=== PATIENT | female | born 1935 | race Caucasian/White ===

== ENCOUNTER 2016-12-22 00:04 | Day surgery (SDC) | payer MEDICARE, OTHER ==
[2016-12-22] VITALS (14 sets, daily range): BP systolic 114–170; BP diastolic 59–145; PULSE 64–67; RESP 12–22; O2SAT 91–97
[~2016-12-22] VITALS: Ht 160 cm; Wt 72.7 kg
[~2016-12-22 00:04] MED LIST: ALBU8.5H2 INH; ALBU8.5H2 INHALATION; AMLO2.5T PO; CALC1CAP6 PO; CITA20TA11 PO; CLOP75TA28 PO; FERR-83 PO; FLUT9.9S NS; GABA-502 PO; LEVO88TA4 PO; LOSA50TA37 PO; NITR-66 PO; RANI150T11 PO; ROSU5TAB PO; SOLI5TAB2 PO; SYMINH INHALATION; TIOT18CA3 INHALATION
[2016-12-22] MEDS ORDERED: Vancomycin Inj 1,000 MG in IV Premix 1 EACH IV SCH (07:25)
[2016-12-22] MEDS ORDERED: 0.9% Sodium Chloride 1,000 ML IV SCH (07:25)
[2016-12-22 08:28] LABS: BASOPHILS % (AUTO) 0.4 % (0-3); EOSINOPHILS % (AUTO) 5.8 % (0-5); MONOCYTES % (AUTO) 7.9 % (4-12); Mean Corpuscular Hemoglobin 28.3 pg (27.0-35.0); Mean Corpuscular Volume 93.5 fL (81-100); NEUTROPHILS % (AUTO) 63.5 % (40-74); Platelet Count 307 bil/L (150-400)
[2016-12-22] MEDS ORDERED: ADV250INH IH (08:28)
[2016-12-22] MEDS ORDERED: IPRA4AER IH (08:29)
[2016-12-22 08:52] LABS: INR 0.97 ratio
--- NOTE | 2016-12-22 08:53 | NUR ---
0800 admit note: Patient ambulates into department with family using her cane. Their questions are answered and consent was previously signed. She is prepped for pacemaker placement.
[2016-12-22] MEDS ORDERED: Water for Injection 50 ML IV ONE (09:59)
[2016-12-22] MEDS ORDERED: Vancomycin 1,000 mg Inj ONE (09:59)
[2016-12-22] MEDS ORDERED: 0.9% Sodium Chloride 250 ML ONE (09:59)
[2016-12-22] MEDS ORDERED: Heparin 10,000 Unit/1,000 mL NS Premix IV ONE (09:59)
[2016-12-22] MEDS ORDERED: Bupivacaine-MPF 0.5% 30 mL Inj ONE (09:59)
[2016-12-22] MEDS ORDERED: fentaNYL-PF 50 mCg/mL 2 mL Inj ONE (10:12)
[2016-12-22] MEDS ORDERED: Ondansetron 2 mg/mL 2 mL Inj IVPUSH PRN (11:25)
--- NOTE | 2016-12-22 13:53 | OP ---
[address] [address] OPERATIVE REPORT PATIENT: TOREY ROSS : 1935 MR#: [id number] ADMIT: 12/22/2016 JOB ID: [id number] DATE OF SURGERY: 12/22/2016 PREOPERATIVE DIAGNOSIS(ES): Sick sinus syndrome. POSTOPERATIVE DIAGNOSIS(ES): Sick sinus syndrome. PROCEDURES PERFORMED: 1. Dual-chamber pacemaker implantation. 2. Fluoroscopy. SURGEON: Interactive Developer: Winston Moya MD, electrophysiology attending. SIGNALS INTELLIGENCE ANALYST: Chandan Real. IMPLANTED DEVICES: 1. [employer] pulse generator, model [id number], serial #[id number]. 2. RV lead [employer] 2088TC, 52 cm, serial number [id number]. 3. RA lead [employer] 2088TC, 46 cm, serial number [id number]. SEDATION: Bolus dosing of Versed and fentanyl was utilized for an appropriate level of sedation. INDICATION: The patient is a pleasant 81-year-old woman with preserved LV function and sick sinus syndrome, along with syncope. After discussion of the risks and benefits of pacemaker implantation, she opted to proceed. PROCEDURAL DESCRIPTION: Following informed signed consent, the patient was taken to the EP laboratory in a fasting nonsedated state where she was prepped in the usual sterile fashion. The left infraclavicular region was infiltrated with 40 mL of a 50/50 mixture of bupivacaine and lidocaine. Once adequate anesthesia had been achieved, a 3 cm transverse incision was performed 2 cm below the left clavicle and dissection was carried down to the pectoralis fascia. A pocket was then fashioned using a combination of electrocautery and blunt dissection. Once adequate hemostasis had been achieved, access to the left axillary and was gotten over the first rib with a micropuncture needle twice to deploy two 0.035, 3 mm J guidewires. Over the first of these, a 6-Lebanese tear-away sheath was advanced. Once the guidewire was removed, an active fixation lead was advanced to the RV outflow tract and ultimately the RV apex. The lead was affixed in position using the associated fixation screw. This was connected to the external analyzer and demonstrated appropriately sensed R waves, impedance, and capture threshold. It was checked to 10 V and there was no evidence of diaphragmatic stimulation. Attention was now paid to the right atrial lead. Over the other previously placed J guidewire, another 6-Lebanese tear-away sheath was advanced. Once the guidewire was removed, an active fixation lead was advanced to the right atrial appendage. It was affixed in position using its associated active fixation screw. The lead was connected to the external analyzer and demonstrated appropriately sensed P waves, impedance, and capture threshold. It was checked to 10 V and there was no evidence of diaphragmatic stimulation. Once the position and redundancy of the leads was confirmed in multiple fluoroscopic views, the leads were anchored to the prepectoral fascia using their associated anchoring sleeves and two Ethibond sutures. The pocket was then copiously irrigated with antibiotic solution. The leads were connected to a generator. The generator was affixed to the floor of the pocket using 1-0 Ti-Cron suture. The incision was then closed with running layers of absorbable suture. The wound was dressed with skin adhesive and a small dressing. At the end of the procedure all needle, sponge, and instrument counts were correct. COMPLICATIONS: None. ESTIMATED BLOOD LOSS: Negligible. DEVICE MEASURED DATA: 1. Right atrial lead 3.6 mV, 430 ohms, 1 V at 0.4 msec. 2. RV lead 12 mV, 700 ohms, 0.5 V at 0.4 msec. 3. Final parameters DDDR 60-130 beats per minute with VIP on. IMPRESSION: Successful dual-chamber pacemaker implantation. PLAN: 1. Stat portable chest x-ray. 2. PA and lateral chest x-ray in the morning. 3. Device interrogation. 4. IV vancomycin through tomorrow. 5. Doxycycline 100 mg p.o. daily x7 days. 6. Wound check in one week. ATTENDING STATEMENT: Winston Moya MD, electrophysiology attending, was present for and supervised/performed all aspects of this procedure.
--- NOTE | 2016-12-22 14:50 | NUR ---
Patient to [facility] [place] Patient arrived to unit via gurney. Patient awake but groggy. Patient reporting Lt chest pain at incision site 03/27. Tylenol administered at approx 1430. Patient has ice to incision-small amount of drainage noted-marked by GRETA-drainage has not increased beyond marking. Patient requesting food and drink, however, is unable to sit up for intake due to pain. Patient quickly returned to sleep.
[2016-12-22] MEDS ORDERED: Albuterol 2.5 mg/3 mL Inhalation Solution NEB PRN (15:05)
[2016-12-22] MEDS ORDERED: Albuterol-Ipratropium 3 mL Inhalation Solution NEB PRN (15:05)
[2016-12-22] MEDS: 0.9% Sodium Chloride 1,000 ML IV SCH ×2 (15:09→21:21)
[2016-12-22] MEDS: Fluticasone-Salmererol 250-50 Inhaler INHALATION SCH (16:37)
--- NOTE | 2016-12-22 16:59 | DRSVH ---
PROCEDURE: X-RAY CHEST ONE VIEW, PORTABLE ([id number]) INDICATIONS: For new leads placed TECHNIQUE: One view of the chest was acquired. COMPARISON: [facility], CR, XR CHEST 1VW (PORTABLE), 04/03/2016, 4:39. [facility], CR, XR CHEST 2VW, 04/27/2016, 12:09. FINDINGS: Surgical changes and devices: Dual-chamber cardiac pacer are present. Lungs and pleura: No pleural effusions or pneumothorax. Lungs are clear. Mediastinum: Prominent cardiac mediastinal contours are. Bones and chest wall: No suspicious bony lesions. Overlying soft tissues appear unremarkable. IMPRESSION: No immediate complications status post cardiac pacemaker placement. Dictated by: Harry Faulkner RRShiv Interpreted: Khai Fonseca MD on 12/22/2016 at 12:44 Approved by: Khai Fonseca M.D. on 12/22/2016 at 16:57
[2016-12-22] MEDS ORDERED: Calcium Carbonate (Oyster Shell) 500 mg Tablet PO SCH (17:30)
[2016-12-22] MEDS: Tiotropium 18mcg/Cap 5 Capsule Inhaler Kit INHALATION SCH (17:56)
[2016-12-22] MEDS ORDERED: Tolterodine ER 2 mg ER24 Capsule PO SCH (21:00)
[2016-12-22] MEDS ORDERED: Vancomycin Inj 1,000 MG in IV Premix 1 EACH IV ONE (23:25)
[2016-12-23 01:10] VITALS: BP 148/70; PULSE 66; RESP 18; O2SAT 91
[2016-12-23 04:56] VITALS: BP 147/92; PULSE 66; RESP 18; O2SAT 93
[2016-12-23 05:34] VITALS: PULSE 69
--- NOTE | 2016-12-23 06:38 | NUR ---
Pain Patient pain 7/10 at incision site, aching denies Chest pain. Patient asking for tylenol only. MD called for early order of tylenol. Tylenol given and pain resolve.
[2016-12-23] MEDS: 0.9% Sodium Chloride 1,000 ML IV SCH (07:11)
[2016-12-23] MEDS: Fluticasone-Salmererol 250-50 Inhaler INHALATION SCH (08:05)
[2016-12-23] MEDS: Tiotropium 18mcg/Cap 5 Capsule Inhaler Kit INHALATION SCH (08:06)
[2016-12-23 08:49] VITALS: PULSE 80
--- NOTE | 2016-12-23 10:06 | DRSVH ---
PROCEDURE: X-RAY CHEST, TWO VIEWS ([id number]) INDICATIONS: For new lead placement TECHNIQUE: 2 views of the chest were acquired. COMPARISON: [facility], CR, XR CHEST 1VW (PORTABLE), 12/22/2016, 11:36. FINDINGS: Surgical changes and devices: Cardiac pacer is unchanged. Surgical clips are projected over the left chest. Lungs and pleura: No pleural effusions or pneumothorax. Lungs are clear. The lung volumes are larg e and the diaphragms are flattened suggesting emphysema. Mediastinum: Mediastinal contours are normal. Heart size is normal. Bones and chest wall: No suspicious bony abnormalities. Soft tissues appear unremarkable. IMPRESSION: No pneumothorax after pacer placement. Dictated by: Lyubov Caicedo M.D. on 12/23/2016 at 10:04 Approved by: Lyubov Caicedo M.D. on 12/23/2016 at 10:05
--- NOTE | 2016-12-23 10:24 | PCM.DIMED ---
Discharge Instructions Date of Service Dec 23, 2016 Dates of Hospitalization 12/22/2016 Discharge Diagnosis Discharge Diagnosis Sick sinus syndrome, s/p Dual-chamber pacemaker implantation. Medication Instructions Additional med instructions Please continue your usual home medications. I prescribed you Doxycycline 100 mg one tablet daily for total of 7 days. Diet Discharge Diet: Low fat, Low Sodium, Heart Healthy Activity Discharge Activity: Other (Please see below) Call your provider Call your provider for: Fever or Chills, Shortness of breath, Bleeding, Chest pain, Excessive diarrhea Patient Instructions Patient Instructions Do not drive a car till you are checked in device clinic in one week. You can have shower starting from tomorrow. Keep incision area dry please. Do not lift left arm higher that your shoulder for 6 weeks. Do not carry anything in your left arm for 6 weeks. Please take Tylenol for pain. If the pain in incision area gets worse, or the area gets swollen, please let us know. Thank you. Follow-up plan You have following appointments at cardiology clinic: 01/02/2017 11:00 am - Device check 02/12/2017 3:00 pm - Device check 02/12/2017 3:40 pm - appointment with Mike Alfaro PA-C, PA-C Dec 23, 2016 10:24
[2016-12-23] MEDS ORDERED: DOXY100C43 PO (10:57)
--- NOTE | 2016-12-23 10:58 | PCM.DC.CAR ---
Discharge Summary Date of Service Dec 23, 2016 Date of Hospital Admission 12/22/2016 Date of Discharge: Dec 23, 2016 Providers: Admitting Physician: Primary Care Physician: Other,Physician Attending Physician: Winston Moya MD Diagnosis at Time of Discharge Sick sinus syndrome, s/p Dual-chamber pacemaker implantation. Problems: Brief History and Physical: The patient is a pleasant 81-year-old woman with preserved LV function and sick sinus syndrome, along with syncope who had Dual-chamber pacemaker implantation on 12/23/2016. IMPLANTED DEVICES: 1. [employer] pulse generator, model [id number], serial #[id number]. 2. RV lead [employer] 2088TC, 52 cm, serial number [id number]. 3. RA lead [employer] 2088TC, 46 cm, serial number [id number]. Hospital Course: The patient tolerated procedure well. The incision area is looking good, no pain , no bleeding, no hematoma Denies having any chest discomfort or ZAMORA. Ambulates freely. Chest X-ray from today showed No pneumothorax. Device functions properly. Medications on discharge are below. Physical Exam: General: no acute distress EENT: MMM, sclerae unicteric Neck: supple, no thyromegaly Pulmo: normal breathing sounds bilaterally, no crackles, no wheezing Cardio: RRR, no murmur appreciated, JVP is not elevated Abdomen: nontender with palpation Extremities: no LE edema Neuro: A&Ox3, no gross abnormalities Discharge Medications Amlodipine (Amlodipine) 2.5 Mg Tablet 2.5 MG PO DAILY Citalopram (Citalopram) 20 Mg Tablet 20 MG PO DAILY Clopidogrel (Clopidogrel) 75 Mg Tablet 75 MG PO QAM Doxycycline Monohyd (Doxycycline Monohyd) 100 Mg Capsule 100 MG PO DAILY Ferrous Sulfate (Ferrous Sulfate) 325 Mg Tablet 325 MG PO twice a week Fluticasone/Salmeterol (Advair 250-50 Diskus) 60 Puff/Inh Disk 1 PUFF IH DAILY Gabapentin (Gabapentin) 300 Mg Capsule 900 MG PO TID Levothyroxine (Levothyroxine) 88 Mcg Tablet 88 MCG PO QAM Losartan Potassium (Losartan Potassium) 50 Mg Tablet 50 MG PO DAILY Nitrofurantoin Macrocrystal (Macrodantin) 100 Mg Capsule 100 MG PO QPM Ranitidine (Zantac) 150 Mg Tablet 150 MG PO BID Rosuvastatin Calcium (Crestor) 5 Mg Tablet 5 MG PO HS Solifenacin Succinate (Vesicare) 5 Mg Tablet 5 MG PO HS Tiotropium [place] (Spiriva) 18 Mcg Cap.w.dev 1 PUFF INHALATION BID As needed Albuterol HFA (Proair HFA) 8.5 Gm Hfa.aer.ad 1-2 PUFF INH Q4H PRN PRN For Shortness of Breath Albuterol/Ipratropium (Combivent Respimat Inhal [place]) 120 Spr/4 Gm Inhaler 1 PUFF IH QID PRN PRN COPD Miscellaneous Medications Calcium/Mag Oxide/Vitamin D3 (Coral Calcium Capsule) 1 Each Capsule 1 EACH PO Additional med instructions Please continue your usual home medications. I prescribed you Doxycycline 100 mg one tablet daily for total of 7 days. Followup Plan Follow-up plan You have following appointments at cardiology clinic: 01/02/2017 11:00 am - Device check 02/12/2017 3:00 pm - Device check 02/12/2017 3:40 pm - appointment with Wesley Umaña PA-C Discharge Activity: Other (Please see below) Patient Instructions Do not drive a car till you are checked in device clinic in one week. You can have shower starting from tomorrow. Keep incision area dry please. Do not lift left arm higher that your shoulder for 6 weeks. Do not carry anything in your left arm for 6 weeks. Please take Tylenol for pain. If the pain in incision area gets worse, or the area gets swollen, please let us know. Thank you. Mike Gabriel PA-C Dec 23, 2016 10:58
--- NOTE | 2016-12-23 11:18 | NUR ---
Discharge Pt d/c home as ordered. Removed both IV's, catheters intact, minimal bleeding. Provided pt with d/c paperwork and instructions, including prescriptions and pacemaker booklet. Pt anxious to leave. Pt ambulated off [facility] independently w/ RN and family, home in private vehicle with family.
== END 2016-12-23 11:20 | disposition home or self-care (01) ==
LOC: SOUO 00:04 → MPC 14:27 → SOUO 12-23 11:20
PROVIDERS: ATTEND Internal Medicine Cardiovascular Disease
DX: I49.5 Sick sinus syndrome (principal); R55 Syncope and collapse; I10 Essential (primary) hypertension; K21.9 Gastro-esophageal reflux disease without esophagitis; J44.9 Chronic obstructive pulmonary disease, unspecified; E11.42 Type 2 diabetes mellitus with diabetic polyneuropathy; I73.9 Peripheral vascular disease, unspecified; Z79.02 Long term (current) use of antithrombotics/antiplatelets
CPT/HCPCS: 33208; 36415; 71010; 71020; 80048; 85025; 85610; 93005; 94664; 99152; 99153; C1769; C1785; C1892; C1898; J1644; J2250; J3010; J3370; J7030; J7050; J7620